=== PATIENT | male | born 1930 | race Caucasian/White ===

== ENCOUNTER → 2019-08-26 | Outpatient (CLI) | payer MEDICARE ==
--- NOTE | 2019-08-26 23:42 | PCVCIMAG ---
EXAM: VENOUS DUPLEX RIGHT LOWER EXTREMITY INDICATION: Leg pain and swelling. FINDINGS: Right leg: No thrombus in the common femoral, main femoral, or popliteal veins. These veins are compressible with phasic flow. Calf veins are unremarkable where seen. IMPRESSION: No evidence of deep venous thrombosis in the right lower extremity as detailed above. LOC:[id number]
--- NOTE | 2019-08-26 23:47 | PCVCIMAG ---
EXAM: BILATERAL LOWER EXTREMITY ARTERIAL DUPLEX INDICATION: Peripheral Arterial Disease. Leg pain. FINDINGS: Right Leg: Common femoral and profunda femoral arteries are patent. Superficial femoral artery is patent. 50-60% stenosis [place] popliteal artery. 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 Mid/distal anterior tibial artery is occluded. Peroneal artery is patent. Left Leg: Common femoral profunda femoral arteries are patent. Superficial femoral artery and popliteal are patent. The anterior tibial and peroneal arteries are patent. Distal most posterior tibial artery is occluded. 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 Occlusion right posterior tibial artery. Occlusion mid/distal right anterior tibial artery. Occlusion distal most left posterior tibial artery. Otherwise no flow-limiting arterial stenosis in the left lower extremity. If right leg symptoms are clinically significant further evaluation with conventional angiography could be done. LOC:[id number]
== END | disposition home or self-care (01) ==
LOC: PCVCIMAG 14:42
PROVIDERS: ATTEND Internal Medicine
DX: I70.203 Unspecified atherosclerosis of native arteries of extremities, bilateral legs (principal); M79.89 Other specified soft tissue disorders
CPT/HCPCS: 93925; 93971